=== PATIENT | female | born 1970 | race Caucasian/White ===

== ENCOUNTER 2016-05-27 12:02 | Emergency (ER) | payer BC | END 2016-05-27 14:45 | disposition home or self-care (01) | LOC: ER1 12:02 | DX: S61.212A Laceration without foreign body of right middle finger without damage to nail, initial encounter (principal); S61.214A Laceration without foreign body of right ring finger without damage to nail, initial encounter; J44.9 Chronic obstructive pulmonary disease, unspecified; F17.210 Nicotine dependence, cigarettes, uncomplicated; Z98.51 Tubal ligation status; Z94.0 Kidney transplant status; W26.8XXA Contact with other sharp object(s), not elsewhere classified, initial encounter | CPT/HCPCS: 12001; 73130; 90471; 90715; 99283 ==

== ENCOUNTER → 2021-02-24 | Outpatient (CLI) | payer BC | LOC: RAD 08:56 | DX: M79.671 Pain in right foot (principal) | CPT/HCPCS: 73630 ==